=== PATIENT | female | born 1940 | race American Indian/Alaskan Native ===

== ENCOUNTER 2019-10-13 17:22 | Observation (INO) | payer OTHER, MEDICARE ==
--- NOTE | 2019-10-13 18:47 | Emergency Department Report ---
ED Dizziness HPI - General Chief Complaint: Dizziness Stated Complaint: DIZZY Time Seen by Provider: 10/13/19 18:03 Source: EMS Mode of arrival: Stretcher Limitations: No Limitations - History of Present Illness Initial Comments: 79-year-old female with history of hypertension presents to ED with complaint of dizziness. Patient states she was at her adult day program today. States she was riding the transport bus home when she began to feel lightheaded and sweaty. States the vibratory pile driver had to help her get off the bus and walked to her personal retirement using her walker because she states her vision was going dark, as if she was going to pass out. Patient reports mild shortness of breath. Patient denies any chest pain, vomiting or diarrhea, fever, abdominal pain. Patient reports slight headache. Patient states her PCP recently added a new blood pressure medication within the last week. Patient reports chronic bilateral lower extremity swelling. She states she is supposed to keep her feet and legs elevated, but she does not. She denies any leg pain. MD Complaint: near syncope -: hour(s) (3) Timing: now resolved Description: near-syncope Severity: moderate Improves With: rest Worsens With: nothing Associated Symptoms: diaphoresis, shortness of breath. denies: chest pain, fever/chills - Related Data Home Medications Medication Instructions Recorded Confirmed Last Taken Diltiazem HCl [Cardizem Cd] 360 mg PO DAILY 10/13/19 10/13/19 Unknown Losartan [Cozaar] 100 mg PO QDAY 10/13/19 10/13/19 Unknown NIFEdipine [Nifedipine ER] 90 mg PO DAILY 10/13/19 10/13/19 Unknown cloNIDine [Catapres] 0.2 mg PO QHS 10/13/19 10/13/19 Unknown hydroCHLOROthiazide [HCTZ] 25 mg PO QDAY 10/13/19 10/13/19 Unknown Allergies Allergy/AdvReac Type Severity Reaction Status Date / Time No Known Allergies Allergy Unverified 11/02/13 13:21 ED Review of Systems ROS: Stated complaint: DIZZY Other details as noted in HPI Comment: All other systems reviewed and negative Constitutional: denies: chills, fever Respiratory: shortness of breath Cardiovascular: denies: chest pain Gastrointestinal: constipation. denies: abdominal pain, nausea, vomiting, diarrhea Musculoskeletal: other (denies lower extremity pain) Neurological: headache ED Past Medical Hx - Past Medical History Hx Hypertension: Yes (30YRS ) Hx GERD: Yes - Social History Smoking Status: Never Smoker Substance Use Type: None - Medications Home Medications: Home Medications Medication Instructions Recorded Confirmed Last Taken Type Diltiazem HCl [Cardizem Cd] 360 mg PO DAILY 10/13/19 10/13/19 Unknown History Losartan [Cozaar] 100 mg PO QDAY 10/13/19 10/13/19 Unknown History NIFEdipine [Nifedipine ER] 90 mg PO DAILY 10/13/19 10/13/19 Unknown History cloNIDine [Catapres] 0.2 mg PO QHS 10/13/19 10/13/19 Unknown History hydroCHLOROthiazide [HCTZ] 25 mg PO QDAY 10/13/19 10/13/19 Unknown History ED Physical Exam - General Limitations: No Limitations General appearance: alert, in no apparent distress - Head Head exam: Present: atraumatic, normocephalic - Eye Eye exam: Present: normal appearance, EOMI - ENT ENT exam: Present: mucous membranes moist - Neck Neck exam: Present: normal inspection - Respiratory Respiratory exam: Present: normal lung sounds bilaterally. Absent: respiratory distress - Cardiovascular Cardiovascular Exam: Present: regular rate, normal rhythm - GI/Abdominal GI/Abdominal exam: Present: soft. Absent: distended, tenderness - Extremities Exam Extremities exam: Present: normal inspection, other (trace pitting edema bilaterally). Absent: calf tenderness - Neurological Exam Neurological exam: Present: alert, oriented X3, CN II-XII intact. Absent: motor sensory deficit - Psychiatric Psychiatric exam: Present: normal affect, normal mood - Skin Skin exam: Present: warm, dry, intact, normal color ED Course Vital Signs 10/13/19 10/13/19 10/13/19 18:03 19:48 23:21 Temperature 98.1 F 98.8 F Pulse Rate 66 64 Respiratory 12 18 Rate Blood Pressure 108/61 Blood Pressure 115/68 [Left] O2 Sat by Pulse 97 94 Oximetry ED Medical Decision Making - Lab Data Result diagrams: 10/13/19 18:48 10/13/19 18:48 - EKG Data -: EKG Interpreted by Nc EKG shows normal: sinus rhythm, axis, intervals, QRS complexes, ST-T waves Rate: normal - EKG Data Interpretation: no acute changes - Radiology Data Radiology results: report reviewed, image reviewed - Medical Decision Making 79 yo F presents to ED following near syncopal episode. Neuro exam nonfocal. Initial vitals showed low normal blood pressure, pt reports recent addition of hypertensive medication. However, pt was not orthostatic with testing. EKG unremarkable. Labs normal, except for elevated D-dimer. Since pt near-syncopal and complained of shortness of breath, CTA was done which was negative for PE. Patient feeling better at this time. Will admit to hospitalist, Dr Ortiz, for further evaluation. - Differential Diagnosis arrythmia, orthostatic, infection, PE Critical care attestation.: If time is entered above; I have spent that time in minutes in the direct care of this critically ill patient, excluding procedure time. ED Disposition Clinical Impression: Near syncope Disposition: DC-09 OP ADMIT IP TO THIS HOSP Is pt being admited?: Yes Condition: Stable Time of Disposition: 21:23
--- NOTE | 2019-10-13 19:01 | XRay Report ---
CHEST 1 VIEW 1829 INDICATION / CLINICAL INFORMATION: dizziness. COMPARISON: 01/09/2011 FINDINGS: SUPPORT DEVICES: None HEART / MEDIASTINUM: No significant abnormality. LUNGS / PLEURA: Increased markings are seen in the right base which are asymmetric. Mild bibasilar at electatic changes are noted but I am concerned this may represent developing pneumonitis in the right base. Follow-up and clinical correlation are suggested. No pneumothorax. ADDITIONAL FINDINGS: No significant additional findings. IMPRESSION: Possible developing infiltrate in the right base as above Signer Name: Jono Vitale MD Signed: 10/13/2019 6:57 PM Workstation Name: [id number]
[2019-10-13 19:03] LABS: Basophils % (Auto) 0.7 % (0.0-1.8); Eosinophils # (Auto) 0.1 K/mm3 (0.0-0.4); Eosinophils % (Auto) 1.3 % (0.0-4.3); Hemoglobin 13.1 gm/dl (10.1-14.3); Lymphocytes # (Auto) 0.9 K/mm3 (1.2-5.4); Lymphocytes % (Auto) 14.7 % (13.4-35.0); Mean Corpuscular HGB Conc 34 % (30-34); Mean Corpuscular Volume 93 fl (79-97); Monocytes # (Auto) 0.3 K/mm3 (0.0-0.8); Monocytes % (Auto) 5.3 % (0.0-7.3); Platelet Count 188 K/mm3 (140-440); Red Blood Count 4.21 M/mm3 (3.65-5.03); Red Cell Distribution Width 14.6 % (13.2-15.2)
[2019-10-13 19:12] LABS: INR 0.91 (0.87-1.13)
[2019-10-13 19:13] LABS: Partial Thromboplastin Time 23.5 Sec. (24.2-36.6)
[2019-10-13 19:21] LABS: BUN/Creatinine Ratio 22; Blood Urea Nitrogen 29 mg/dL (7-17); Calcium 9.8 mg/dL (8.4-10.2); Hemolysis Index 24
--- NOTE | 2019-10-13 21:20 | Cat Scan Report ---
CTA CHEST WITH IV CONTRAST INDICATION: sob, elevated d-dimer CONTRAST: 60 cc Omnipaque 350 IV COMPARISON: AP portable chest x-ray today Three-plane MIP reconstructions were produced. All CT scans at this location are performed using CT d ose reduction for ALARA by means of automated exposure control. FINDINGS: No significant axillary or chest wall abnormalities are seen. Visualized portions of the up per abdomen show no significant abnormalities. No mediastinal or hilar masses are seen. The esophagus has a patulous of appearance shows a small amount of fluid as might be seen with gastroesophageal re flux. Minimal hiatal hernia is seen. No pneumothorax or pneumomediastinum are seen. Bibasilar atelect atic changes are noted. No definite areas of consolidation are seen. No definite pulmonary nodules or masses are noted. Minimal peripheral densities appear more scarlike than truly nodular. Aorta shows no aneurysmal dilatation or obvious evidence of dissection. Good opacification of the pulmonary arterial system was achieved. I do not see convincing evidence of pulmonary thromboembolism. IMPRESSION: 1. No convincing evidence of pulmonary thromboembolism 2. Bibasilar atelectatic changes 3. Findings suggesting gastroesophageal reflux Signer Name: Jono Vitale MD Signed: 10/13/2019 9:16 PM Workstation Name: [id number]
[2019-10-13] MEDS ORDERED: ONDANSETRON 4 MG/2 ML INJ IV PRN (21:40)
[2019-10-13] MEDS ORDERED: ACETAMINOPHEN 325 MG TAB PO PRN (21:40)
[2019-10-13] MEDS ORDERED: SODIUM CHLORIDE 0.9% 1000 ML 1,000 ML IV SCH (21:45)
[2019-10-13] MEDS ORDERED: POLYETHYLENE GLYCOL 3350 17 GM POWDER PO PRN (22:29)
[2019-10-13] MEDS ORDERED: PANTOPRAZOLE 40 MG TAB PO ONE (22:43)
[2019-10-13] MEDS ORDERED: DOCUSATE SODIUM 100 MG CAP ONE (22:43)
[2019-10-13 22:44] LABS: Bilirubin,Urine NEG (Negative); Blood,Urine SM (Negative); Color,Urine Yellow (Yellow); Mucus,Urine FEW /HPF; Protein,Urine <15 mg/dL mg/dL (Negative); Urobilinogen,Urine < 2.0 mg/dL (<2.0)
[2019-10-13] MEDS ORDERED: HEPARIN 5,000 UNIT/1 ML VIAL ONE (22:44)
[2019-10-13] MEDS: HEPARIN 5,000 UNIT/1 ML VIAL SUB-Q SCH (22:46)
[2019-10-13] MEDS: DOCUSATE SODIUM 100 MG CAP PO SCH (22:46)
--- NOTE | 2019-10-13 22:50 | History and Physical Report ---
<GURINDER BOLANOS - Last Filed: 10/13/19 22:34> History of Present Illness Date of examination: 10/13/19 Date of admission: 10/13/2019 Chief complaint: near syncopal episode and dizziness History of present illness: 79-year-old -[place] female who is a resident of [facility] with history of hypertension and GERD who presents [facility] ED with complaint of near syncopal episode. Patient states that she was on the transportation bus returning from her adult daycare program when she suddenly felt hot it was if she was "burning up", and became lightheaded and sweaty. She states that she was unable to see anything for a brief moment. When she arrived at her destination and attempted to stand she felt weak and had to sit back down. The p d driver had to use he sitting walker and assist her in getting off the bus. Pt states that she has never felt like this before. She decided to come to the ED for further evaluation and treatment. Denies n/v, fever, SOB, CP, loss of consciousness, recent fall/ injury. Admits to mild occasional headache. Past History Past Medical History: GERD, hypertension Past Surgical History: No surgical history Social history: other (resident of [facility]) Family history: no significant family history Medications and Allergies Allergies Allergy/AdvReac Type Severity Reaction Status Date / Time No Known Allergies Allergy Unverified 11/02/13 13:21 Home Medications Medication Instructions Recorded Confirmed Last Taken Type Diltiazem HCl [Cardizem Cd] 360 mg PO DAILY 10/13/19 10/13/19 Unknown History Losartan [Cozaar] 100 mg PO QDAY 10/13/19 10/13/19 Unknown History NIFEdipine [Nifedipine ER] 90 mg PO DAILY 10/13/19 10/13/19 Unknown History cloNIDine [Catapres] 0.2 mg PO QHS 10/13/19 10/13/19 Unknown History hydroCHLOROthiazide [HCTZ] 25 mg PO QDAY 10/13/19 10/13/19 Unknown History Active Meds: Active Medications Acetaminophen (Tylenol) 650 mg PO Q4H PRN PRN Reason: Pain MILD(1-3)/Fever >100.5/GARCIA Docusate Sodium (Colace) 100 mg PO BID POLY Heparin Sodium (Porcine) (Heparin) 5,000 unit SUB-Q Q12HR POLY Sodium Chloride (Nacl 0.9% 1000 Ml) 1,000 mls @ 75 mls/hr IV DIRECT POLY Stop: 10/14/19 11:00 Ondansetron HCl (Zofran) 4 mg IV Q8H PRN PRN Reason: Nausea And Vomiting Pantoprazole Sodium (Protonix) 40 mg PO BID [facility] Polyethylene Glycol (Miralax 3350) 17 gm PO QDAY PRN PRN Reason: Constipation Pravastatin Sodium (Pravachol) 40 mg PO QHS POLY Sodium Chloride (Sodium Chloride Flush Syringe 10 Ml) 10 ml IV BID POLY Sodium Chloride (Sodium Chloride Flush Syringe 10 Ml) 10 ml IV PRN PRN PRN Reason: LINE FLUSH Review of Systems All systems: negative Eyes: bilateral: blurred vision (has since resolved) Cardiovascular: leg edema (chronic bilateral ) Gastrointestinal: constipation Neurological: syncope (near syncope), other (dizziness) Exam - Physical Exam Narrative exam: Physical exam General appearance: Present: No acute distress, alert and oriented 3, , well- developed, well-nourished, older adult, -[place] female - EENT Eyes: Present: PERRL, EOM intact ENT: hearing intact, normal dentition - Neck Neck: Present: supple, normal ROM - Respiratory Respiratory effort: Non-labored Respiratory: Clear throughout - Cardiovascular Heart rate: 810(bpm) Rhythm: Sinus rhythm Heart Sounds: Present: S1 & S2. Absent: rub, click - Extremities Extremities: no ischemia, pulses intact, - Peripheral Assessment Peripheral Pulses: within normal limits - Abdominal General gastrointestinal: soft, non-tender, normal bowel sounds - Integumentary Integumentary: Present: warm, dry - Musculoskeletal Musculoskeletal: Able to move all extremities -Neurological Neurological: CN II-XII intact - Psychiatric Psychiatric: Appropriate for situation ,cooperative - Constitutional Vitals: Temp Pulse Resp BP Pulse Ox 98.1 F 66 12 108/61 97 10/13/19 19:48 10/13/19 18:03 10/13/19 18:03 10/13/19 18:03 10/13/19 18:03 Results - Labs CBC & Chem 7: 10/13/19 18:48 10/13/19 18:48 Labs: Laboratory Last Values WBC 5.8 K/mm3 (4.5-11.0) 10/13/19 18:48 RBC 4.21 M/mm3 (3.65-5.03) 10/13/19 18:48 Hgb 13.1 gm/dl (10.1-14.3) 10/13/19 18:48 Hct 39.0 % (30.3-42.9) 10/13/19 18:48 MCV 93 fl (79-97) 10/13/19 18:48 MCH 31 pg (28-32) 10/13/19 18:48 MCHC 34 % (30-34) 10/13/19 18:48 RDW 14.6 % (13.2-15.2) 10/13/19 18:48 Plt Count 188 K/mm3 (140-440) 10/13/19 18:48 Lymph % (Auto) 14.7 % (13.4-35.0) 10/13/19 18:48 [place] % (Auto) 5.3 % (0.0-7.3) 10/13/19 18:48 Eos % (Auto) 1.3 % (0.0-4.3) 10/13/19 18:48 Baso % (Auto) 0.7 % (0.0-1.8) 10/13/19 18:48 Lymph # 0.9 K/mm3 (1.2-5.4) L 10/13/19 18:48 [place] # 0.3 K/mm3 (0.0-0.8) 10/13/19 18:48 Eos # 0.1 K/mm3 (0.0-0.4) 10/13/19 18:48 Baso # 0.0 K/mm3 (0.0-0.1) 10/13/19 18:48 Seg Neutrophils % 78.0 % (40.0-70.0) H 10/13/19 18:48 Seg Neutrophils # 4.6 K/mm3 (1.8-7.7) 10/13/19 18:48 PT 12.3 Sec. (12.2-14.9) 10/13/19 18:48 INR 0.91 (0.87-1.13) 10/13/19 18:48 APTT 23.5 Sec. (24.2-36.6) L 10/13/19 18:48 D-Dimer 930.32 ng/mlDDU (0-234) H 10/13/19 18:48 Sodium 140 mmol/L (137-145) 10/13/19 18:48 Potassium 4.4 mmol/L (3.6-5.0) 10/13/19 18:48 Chloride 103.1 mmol/L (98-107) 10/13/19 18:48 Carbon Dioxide 22 mmol/L (22-30) 10/13/19 18:48 Anion Gap 19 mmol/L 10/13/19 18:48 BUN 29 mg/dL (7-17) H 10/13/19 18:48 Creatinine 1.3 mg/dL (0.7-1.2) H 10/13/19 18:48 Estimated GFR 48 ml/min 10/13/19 18:48 BUN/Creatinine Ratio 22 % 10/13/19 18:48 Glucose 138 mg/dL (65-100) H 10/13/19 18:48 Calcium 9.8 mg/dL (8.4-10.2) 10/13/19 18:48 Troponin T < 0.010 ng/mL (0.00-0.029) 10/13/19 18:48 - Imaging and Cardiology Imaging and Cardiology: CT Angio Chest: FINDINGS: No significant axillary or chest wall abnormalities are seen. Visualized portions of the upper abdomen show no significant abnormalities. No mediastinal or hilar masses are seen. The esophagus has a patulous of appearance shows a small amount of fluid as might be seen with gastroesophageal reflux. Minimal hiatal hernia is seen. No pneumothorax or pneumomediastinum are seen. Bibasilar atelectatic changes are noted. No definite areas of consoli dation are seen. No definite pulmonary nodules or masses are noted. Minimal peripheral densities bro ear more scarlike than truly nodular. Aorta shows no aneurysmal dilatation or obvious evidence of dissection. Good opacification of the pulmonary arterial system was achieved. I do not see convincing evidence of pulmonary thromboembolism. IMPRESSION: 1. No convincing evidence of pulmonary thromboembolism 2. Bibasilar atelectatic changes 3. Findings suggesting gastroesophageal reflux CXR: FINDINGS: SUPPORT DEVICES: None HEART / MEDIASTINUM: No significant abnormality. LUNGS / PLEURA: Increased markings are seen in the right base which are asymmetric. Mild bibasilaratelectatic changes are noted but I am concerned this may represent developing pneumonitis in the right base. Follow-up and clinical correlation are suggested. No pneumothorax. ADDITIONAL FINDINGS: No significant additional findings. IMPRESSION: Possible developing infiltrate in the right base as above Assessment and Plan Assessment and plan: 79-year-old -[place] female who is a resident of [facility] with history of hypertension and GERD who presents [facility] ED with complaint of near syncopal episode. Near Syncope -Denies loss of consciousness -CXR unremarkable -Neuro Checks -PT/OT eval pending -Echo and Bilateral Carotid Doppler pending -On IVF -Continue Supportive care Elevated D-Dimer -930.32 -CT Angio Chest negative HTN -Monitor BP -Resume home hypertensive meds once medication reconciliation has been updates GERD -On Protonix DVT PPX -On Heparin -SCD's Advance Directives: No VTE prophylaxis?: Chemical Plan of care discussed with patient/family: Yes <HILARIO HOWARD - Last Filed: 10/14/19 00:31> History of Present Illness Date of admission: 10/13/19 21:41 Medications and Allergies Active Meds: Active Medications Acetaminophen (Tylenol) 650 mg PO Q4H PRN PRN Reason: Pain MILD(1-3)/Fever >100.5/GARCIA Docusate Sodium (Colace) 100 mg PO BID [facility] Last Admin: 10/13/19 22:46 Dose: 100 mg Documented by: Heparin Sodium (Porcine) (Heparin) 5,000 unit SUB-Q Q12HR [facility] Last Admin: 10/13/19 22:46 Dose: 5,000 unit Documented by: Sodium Chloride (Nacl 0.9% 1000 Ml) 1,000 mls @ 75 mls/hr IV DIRECT [facility] Stop: 10/14/19 11:00 Last Admin: 10/13/19 22:46 Dose: 75 mls/hr Documented by: Ondansetron HCl (Zofran) 4 mg IV Q8H PRN PRN Reason: Nausea And Vomiting Pantoprazole Sodium (Protonix) 40 mg PO BID [facility] Polyethylene Glycol (Miralax 3350) 17 gm PO QDAY PRN PRN Reason: Constipation Pravastatin Sodium (Pravachol) 40 mg PO QHS [facility] Sodium Chloride (Sodium Chloride Flush Syringe 10 Ml) 10 ml IV BID [facility] Last Admin: 10/13/19 22:46 Dose: 10 ml Documented by: Sodium Chloride (Sodium Chloride Flush Syringe 10 Ml) 10 ml IV PRN PRN PRN Reason: LINE FLUSH Exam - Constitutional Vitals: Temp Pulse Resp BP Pulse Ox 98.8 F 64 18 115/68 94 10/13/19 23:21 10/13/19 23:21 10/13/19 23:21 10/13/19 23:21 10/13/19 23:21 Results - Labs CBC & Chem 7: 10/13/19 18:48 18 18:48 Labs: Laboratory Last Values WBC 5.8 K/mm3 (4.5-11.0) 10/13/19 18:48 RBC 4.21 M/mm3 (3.65-5.03) 10/13/19 18:48 Hgb 13.1 gm/dl (10.1-14.3) 10/13/19 18:48 Hct 39.0 % (30.3-42.9) 10/13/19 18:48 MCV 93 fl (79-97) 10/13/19 18:48 MCH 31 pg (28-32) 10/13/19 18:48 MCHC 34 % (30-34) 10/13/19 18:48 RDW 14.6 % (13.2-15.2) 10/13/19 18:48 Plt Count 188 K/mm3 (140-440) 10/13/19 18:48 Lymph % (Auto) 14.7 % (13.4-35.0) 10/13/19 18:48 Candler % (Auto) 5.3 % (0.0-7.3) 10/13/19 18:48 Eos % (Auto) 1.3 % (0.0-4.3) 10/13/19 18:48 Baso % (Auto) 0.7 % (0.0-1.8) 10/13/19 18:48 Lymph # 0.9 K/mm3 (1.2-5.4) L 10/13/19 18:48 [place]ler # 0.3 K/mm3 (0.0-0.8) 10/13/19 18:48 Eos # 0.1 K/mm3 (0.0-0.4) 10/13/19 18:48 Baso # 0.0 K/mm3 (0.0-0.1) 10/13/19 18:48 Seg Neutrophils % 78.0 % (40.0-70.0) H 10/13/19 18:48 Seg Neutrophils # 4.6 K/mm3 (1.8-7.7) 10/13/19 18:48 PT 12.3 Sec. (12.2-14.9) 10/13/19 18:48 INR 0.91 (0.87-1.13) 10/13/19 18:48 APTT 23.5 Sec. (24.2-36.6) L 10/13/19 18:48 D-Dimer 930.32 ng/mlDDU (0-234) H 10/13/19 18:48 Sodium 140 mmol/L (137-145) 10/13/19 18:48 Potassium 4.4 mmol/L (3.6-5.0) 10/13/19 18:48 Chloride 103.1 mmol/L (98-107) 10/13/19 18:48 Carbon Dioxide 22 mmol/L (22-30) 10/13/19 18:48 Anion Gap 19 mmol/L 10/13/19 18:48 BUN 29 mg/dL (7-17) H 10/13/19 18:48 Creatinine 1.3 mg/dL (0.7-1.2) H 10/13/19 18:48 Estimated GFR 48 ml/min 10/13/19 18:48 BUN/Creatinine Ratio 22 % 10/13/19 18:48 Glucose 138 mg/dL (65-100) H 10/13/19 18:48 Calcium 9.8 mg/dL (8.4-10.2) 10/13/19 18:48 Troponin T < 0.010 ng/mL (0.00-0.029) 10/13/19 18:48 Urine Color Yellow (Yellow) 10/13/19 22:00 Urine Turbidity Slightly-cloudy (Clear) 10/13/19 22:00 Urine pH 5.0 (5.0-7.0) 10/13/19 22:00 Ur Specific [place] 1.025 (1.003-1.030) 10/13/19 22:00 Urine Protein <15 mg/dl mg/dL (Negative) 10/13/19 22:00 Urine Glucose (UA) Neg mg/dL (Negative) 10/13/19 22:00 Urine Ketones Neg mg/dL (Negative) 10/13/19 22:00 Urine Blood Sm (Negative) 10/13/19 22:00 Urine Nitrite Neg (Negative) 10/13/19 22:00 Urine Bilirubin Neg (Negative) 10/13/19 22:00 Urine Urobilinogen < 2.0 mg/dL (<2.0) 10/13/19 22:00 Ur Leukocyte Esterase Lg (Negative) 10/13/19 22:00 Urine WBC (Auto) 29.0 /HPF (0.0-6.0) H 10/13/19 22:00 Urine RBC (Auto) 17.0 /HPF (0.0-6.0) 10/13/19 22:00 U Epithel Cells (Auto) 8.0 /HPF (0-13.0) 10/13/19 22:00 Ur Transition Epith Cell 1 /HPF 10/13/19 22:00 Urine Mucus Few /HPF 10/13/19 22:00 Assessment and Plan Assessment and plan: 79 year old woman with hypertension, GERD is being evaluated for the coming diaphoretic, dizzy and having blurred vision and almost passing out. Physical exam is benign, agree with plan as stated above
[2019-10-13] MEDS ORDERED: SODIUM CHLORIDE 0.9% 1000 ML 1,000 ML ONE (23:09)
[2019-10-13] MEDS: PRAVASTATIN 40 MG TAB PO SCH (23:51)
[2019-10-14 06:15] LABS: HDL Cholesterol 70 mg/dL (40-59); LDL Cholesterol,Direct 113 mg/dL (50-130)
[2019-10-14] MEDS: HEPARIN 5,000 UNIT/1 ML VIAL SUB-Q SCH ×2 (09:49→21:40)
[2019-10-14] MEDS: DOCUSATE SODIUM 100 MG CAP PO SCH ×2 (09:50→21:40)
[2019-10-14] MEDS: PANTOPRAZOLE 40 MG TAB PO SCH ×2 (09:52→21:40)
[2019-10-14] MEDS ORDERED: FLU VACC QUAD 2019-20 (3 YR UP)/PF 60 MCG/0.5 ML SYRINGE IM ONE (12:00)
--- NOTE | 2019-10-14 13:24 | Cat Scan Report ---
CT HEAD WITHOUT CONTRAST INDICATION : dizziness. TECHNIQUE: Axial imaging performed from the skull apex through the skull base without the use of con trast. All CT scans at this location are performed using CT dose reduction for ALARA by means of aut omated exposure control. COMPARISON: None FINDINGS: Parenchyma: No acute intracranial hemorrhage or parenchymal abnormality. Ventricles: Ventricles are normal in size and appear symmetric. Soft tissues: Soft tissues including the orbits appear normal. Bones: No acute osseous abnormality. Sinuses: Mild bilateral maxillary and bilateral ethmoid sinus mucoperiosteal thickening. IMPRESSION: Mild sinusitis and otherwise negative. Signer Name: Conner Fraser MD Signed: 10/14/2019 1:20 PM Workstation Name: [id number]
--- NOTE | 2019-10-14 13:44 | Vascular Lab Report ---
"DUPLEX DOPPLER ULTRASOUND CAROTID, BILATERAL INDICATION: near syncope. FINDINGS: RIGHT CAROTID: No significant atherosclerotic plaque. Right ICA peak systolic velocity: 97 cm/sec. Right Vertebral Artery: Antegrade flow. LEFT CAROTID: No significant atherosclerotic plaque. Left ICA peak systolic velocity: 121 cm/sec. Left Vertebral Artery: Antegrade flow. IMPRESSION: 1. Right Internal Carotid Artery: Less than 50% diameter stenosis. 2. Left Internal Carotid Artery: Less than 50% diameter stenosis. Velocity criteria are extrapolated from diameter data as defined by the Society of Radiologists in Ul trasound Consensus Conference, Radiology 2003; 229;340-346. Degree of Stenosis (%) || ICA PSV (cm/sec) || Plaque estimate (%) || ICA/CCA PSV Ratio Normal <125 None <2.0 <50 <125 <50 <2.0 50-69 125-230 50 2.0-4.0 70 but less than 100 >230 50 >4.0 Near occlusion High, low, or none visible variable Total occlusion None visible; no lumen N/A Signer Name: Nikolay Wynne MD Signed: 10/14/2019 1:39 PM Workstation Name: [id number]"
--- NOTE | 2019-10-14 16:49 | Discharge Summary ---
Providers - Providers Date of Admission: 10/13/19 21:41 Date of discharge: 10/14/19 Attending physician: CARRIE SHEPARD 10/13/19 21:42 Occupational Therapy Evaluate and Treat [CONS] Routine Comment: Reason For Exam: Neuro deficits Physical Therapy Evaluation and Treat [CONS] Routine Comment: Reason For Exam: Neuro deficits Primary care physician: [employer] REP Hospitalization Condition: Stable Pertinent studies: CT head Carotid doppler 2d echo CXR Chest CTA Hospital course: 79-year-old -[place]ish female who is a [facility] with history of hypertension and GERD who presents [facility] ED with complaint of near syncopal episode. Discharge Diagnosis: /Near Syncope - likley vasovagal from dehydration and BP medications -Denies loss of consciousness -CXR unremarkable -PT/OT recommended HH with roller walker -Echo with preserved EF and Bilateral Carotid Doppler showed <50% stenosis -Ct head unremarkable, s/p iv fluid /Elevated D-Dimer -930.32 -CT Angio Chest negative /HTN - BP stable w/o meds, will hold BP meds /GERD -On Protonix DVT PPX -On Heparin Disposition: DC/TX-06 HOME UNDER HOME [facility] Time spent for discharge: 34 minutes Core Measure Documentation - Palliative Care Palliative Care/ Comfort Measures: Not Applicable - Core Measures Any of the following diagnoses?: none Exam - Constitutional Vitals: Temp Pulse Resp BP Pulse Ox 97.5 F L 71 18 126/65 92 10/14/19 11:37 10/14/19 11:37 10/14/19 11:37 10/14/19 11:37 10/14/19 11:37 General appearance: Present: no acute distress, well-nourished - EENT Eyes: Present: PERRL ENT: hearing intact, clear oral mucosa - Neck Neck: Present: supple, normal ROM - Respiratory Respiratory effort: normal Respiratory: bilateral: CTA - Cardiovascular Heart Sounds: Present: S1 & S2. Absent: rub, click - Extremities Extremities: pulses symmetrical, No edema Peripheral Pulses: within normal limits - Abdominal General gastrointestinal: Present: soft, non-tender, non-distended, normal bowel sounds - Integumentary Integumentary: Present: clear, warm, dry - Musculoskeletal Musculoskeletal: gait normal, strength equal bilaterally - Psychiatric Psychiatric: appropriate mood/affect, intact judgment & insight - Neurologic Neurologic: CNII-XII intact, moves all extremities Plan Activity: advance as tolerated Weight Bearing Status: Weight Bear as Tolerated Diet: low fat Special Instructions: record daily BP diary, other (home health PT/OT) Durable Medical Equipment Needed Upon Discharge: Walker-Rolling, other (shower chair) Follow up with: PRIMARY CARE, [Primary Care Provider] - 3-5 Days Prescriptions: Aspirin EC [Halfprin EC] 81 mg PO QDAY #30 tablet
[2019-10-14] MEDS ORDERED: ASPIRIN EC 81 MG TAB PO SCH (17:00)
[2019-10-14 20:52] VITALS: BP 150/77
[2019-10-14] MEDS: PRAVASTATIN 40 MG TAB PO SCH (21:40)
== END 2019-10-14 22:30 | disposition home health service (06) ==
LOC: ED 17:22 → 4A 21:41
PROVIDERS: ADMIT Internal Medicine; ATTEND Internal Medicine
DX: R55 Syncope and collapse (principal); R74.8 Abnormal levels of other serum enzymes; I10 Essential (primary) hypertension; K21.9 Gastro-esophageal reflux disease without esophagitis; H53.8 Other visual disturbances
CPT/HCPCS: 36415; 70450; 71045; 71275; 80048; 80061; 81001; 84484; 85025; 85379; 85610; 85730; 87086; 90686; 93005; 93010; 93306; 93880; 96361; 96372; 96374; 97116; 97161; 97165; 99284; A9270; G0378; J1644; J2405; J7030; Q9967